=== PATIENT | male | born 1965 | race Caucasian/White ===

== ENCOUNTER → 2020-05-14 | Day surgery (SDC) | payer BC ==
[2020-05-13 11:51] VITALS: BMI 28.8
[~2020-05-14] MED LIST: SIMETHICONE 40 MG/0.6 ML BOTTLE ONE
[2020-05-14 11:48] VITALS: TEMP 99.1
[2020-05-14 12:29] VITALS: BP 118/78; PULSE 88
== END | disposition home or self-care (01) ==
LOC: JASU-ENDO 10:26
PROVIDERS: ATTEND Internal Medicine Gastroenterology
PROC: 0DJD8ZZ Inspection of Lower Intestinal Tract, Via Natural or Artificial Opening Endoscopic (ICD-10-PCS; principal; 2020-05-14 11:00)
DX: Z12.11 Encounter for screening for malignant neoplasm of colon (principal); K64.8 Other hemorrhoids

== ENCOUNTER 2023-07-20 05:04 | Day surgery (SDC) | payer BC ==
[2023-07-19 11:48] VITALS: BMI 29.7
[2023-07-20 11:55] VITALS: TEMP 98.2
[2023-07-20 12:27] VITALS: BP 106/62; PULSE 64; RESP 18
== END 2023-07-20 12:44 | disposition home or self-care (01) ==
LOC: JASU-ENDO 05:04
PROVIDERS: ATTEND Internal Medicine Gastroenterology
PROC: 0DJD8ZZ Inspection of Lower Intestinal Tract, Via Natural or Artificial Opening Endoscopic (ICD-10-PCS; principal; 2023-07-20 10:45)
DX: Z12.11 Encounter for screening for malignant neoplasm of colon (principal); K64.8 Other hemorrhoids